=== PATIENT | female | born 1960 | race Two or more races ===

== ENCOUNTER 2017-06-16 14:25 | Emergency (ER) | payer OTHER ==
[2017-06-16 14:34] VITALS: BP 152/95; RESP 18; O2SAT 98
--- NOTE | 2017-06-16 14:58 | EDPHY ---
H & P Time Seen by Provider: 06/16/17 14:32 HPI/ROS: Chief complaint. Weakness and lightheaded HPI. 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 During the day today she developed lightheadedness and felt that she could pass out. She did not feel safe to drive. She is better with lying down. She has no fever. Has not had chest discomfort shortness of breath. She has nausea but no abdominal pain, diarrhea or vomiting. No similar symptoms previously healthy device denies past medical history. ROS Constitutional. Weakness Eyes. no problems with vision ENT. no sore throat, no nasal drainage Cardiovascular. no chest pain Respiratory. no shortness of breath, no cough Abdominal. Nausea . no problems urinating MS. no calf pain/swelling, no neck/back pain, no joint pain Skin. no rash Lymph. no swollen glands Neuro. Lightheaded and near syncope Past Medical/Surgical History: , hysterectomy, left shoulder surgery Social History: , nonsmoker, no alcohol Smoking Status: Never smoked Physical Exam: General Appearance: Alert well-developed female mild distress vital signs are stable Eyes: Pupils equal and round no pallor or injection. ENT, Mouth: Mucous membranes are moist. Respiratory: There are no retractions, lungs are clear to auscultation. Cardiovascular: Regular rate and rhythm. Gastrointestinal: Abdomen is soft and nontender, no masses, bowel sounds normal. Neurological: Awake and alert, sensory and motor exams grossly normal. Skin: Warm and dry, no rashes. Musculoskeletal: Neck is supple nontender. Extremities symmetrical, full range of motion. Psychiatric: Patient is oriented X 3, there is no agitation. Constitutional: Initial Vital Signs Temperature (C) 36.7 C 06/16/17 14:33 Heart Rate 78 06/16/17 14:33 Respiratory Rate 18 06/16/17 14:33 Blood Pressure 152/95 H 06/16/17 14:33 O2 Sat (%) 98 06/16/17 14:33 O2 Delivery Mode Room Air Allergies/Adverse Reactions: No Known Allergies Allergy (Unverified 03/22/15 16:16) Home Medications: Medication Instructions Recorded Hydrocodone/APAP 5/325 [[facility] - 2 tab PO Q4H PRN #12 tab 03/22/15 5/325] Medical Decision Making - Diagnostics EKG Interpretation: EKG interpreted by me shows normal sinus rhythm with normal interval and axis. QRS is normal there is no significant ST elevation or depression. No arrhythmia. The rate is 66. Procedures: IV normal saline with target of 2 L. Zofran for nausea ED Course/Re-evaluation: Re-evaluation 4:55 p.m.--patient is without symptoms. The patient and her and I discussed EKG and laboratory evaluation. We discussed treatment plan including criteria for return importance of follow-up and further evaluation. They expressed understanding and agreement Differential Diagnosis: I considered dehydration, heat exhaustion, acute coronary syndrome, electrolyte abnormality - Data Points Laboratory Results: Laboratory Results 06/16/17 Unknown 06/16/17 Unknown 06/16/17 06/16/17 Unknown Unknown WBC 5.18 10^3/uL 10^3/uL (3.80-9.50) RBC 4.76 10^6/uL 10^6/uL (4.18-5.33) Hgb 14.3 g/dL g/dL (12.6-16.3) Hct 42.5 % % (38.0-47.0) MCV 89.3 fL fL (81.5-99.8) MCH 30.0 pg pg (27.9-34.1) MCHC 33.6 g/dL g/dL (32.4-36.7) RDW 12.4 % % (11.5-15.2) Plt Count 259 10^3/uL 10^3/uL (150-400) MPV 9.3 fL fL (8.7-11.7) Neut % (Auto) 50.8 % % (39.3-74.2) Lymph % (Auto) 41.3 % % (15.0-45.0) Bledsoe % (Auto) 5.4 % % (4.5-13.0) Eos % (Auto) 1.9 % % (0.6-7.6) Baso % (Auto) 0.4 % % (0.3-1.7) Nucleat RBC Rel Count 0.0 % % (0.0-0.2) Absolute Neuts (auto) 2.63 10^3/uL 10^3/uL (1.70-6.50) Absolute Lymphs (auto) 2.14 10^3/uL 10^3/uL (1.00-3.00) Absolute Monos (auto) 0.28 10^3/uL L 10^3/uL (0.30-0.80) Absolute Eos (auto) 0.10 10^3/uL 10^3/uL (0.03-0.40) Absolute Basos (auto) 0.02 10^3/uL 10^3/uL (0.02-0.10) Absolute Nucleated RBC 0.00 10^3/uL 10^3/uL (0-0.01) Immature Gran % 0.2 % % (0.0-1.1) Immature Gran # 0.01 10^3/uL 10^3/uL (0.00-0.10) Sodium 143 mEq/L mEq/L (134-144) Potassium 4.0 mEq/L mEq/L (3.5-5.2) Chloride 106 mEq/L mEq/L (97-110) Carbon Dioxide 25 mEq/l mEq/l (22-31) Anion Gap 12 mEq/L mEq/L (8-16) BUN 17 mg/dL mg/dL (7-23) Creatinine 0.8 mg/dL mg/dL (0.6-1.0) Estimated GFR > 60 Glucose 129 mg/dL H mg/dL (70-100) Calcium 10.0 mg/dL mg/dL (8.5-10.4) Troponin I < 0.012 ng/mL ng/mL (0-0.034) Medications Given: Discontinued Medications Sodium Chloride (Ns) 1,000 mls @ 0 mls/hr IV EDNOW ONE; Wide Open PRN Reason: Protocol Stop: 06/16/17 15:11 Last Admin: 06/16/17 15:18 Dose: 1,000 mls Sodium Chloride (Ns) 1,000 mls @ 0 mls/hr IV EDNOW ONE; Wide Open PRN Reason: Protocol Stop: 06/16/17 15:11 Last Admin: 06/16/17 15:21 Dose: Not Given Ondansetron HCl (Zofran) 4 mg IVP EDNOW ONE Stop: 06/16/17 15:11 Last Admin: 06/16/17 15:18 Dose: 4 mg Departure - Departure Disposition: Home, Routine, Self-Care Clinical Impression: Weakness Condition: Good Instructions: Heat Exhaustion (ED) Additional Instructions: Drink plenty of fluids and stay hydrated. Return for worsening symptoms. Recheck by Dr. Banks in the next 2-3 days. Referrals: Patient,NotPresent [Unknown] - As per Instructions
[2017-06-16] MEDS ORDERED: ONDANSETRON 4 MG/2 ML VIAL IVP ONE (15:10)
[2017-06-16] MEDS ORDERED: NS 1,000 ML IV ONE ×2 (15:10)
[2017-06-16 15:21] LABS: % IMMATURE GRANULYOCYTES 0.2 % (0.0-1.1); ABSOLUTE IMMATURE GRANULOCYTES 0.01 10^3/uL (0.00-0.10); ADD DIFF? NO; ADD MORPH? NO; ADD SCAN? NO; ATYPICAL LYMPHOCYTE FLAG 20 (0-99); FRAGMENT RBC FLAG 0 (0-99); HEMATOCRIT 42.5 % (38.0-47.0); HEMOGLOBIN 14.3 g/dL (12.6-16.3); LEFT SHIFT FLG 0 (0-99); LIPEMIA HEMOLYSIS FLAG 80 (0-99); MEAN CELL HEMOGLOBIN CONCENTR. 33.6 g/dL (32.4-36.7); MEAN CELL VOLUME 89.3 fL (81.5-99.8); MEAN PLATELET VOLUME 9.3 fL (8.7-11.7); PLATELET CLUMPS FLAG 0 (0-99); PLATELET COUNT 259 10^3/uL (150-400); RED BLOOD CELL COUNT 4.76 10^6/uL (4.18-5.33); RED CELL DISTRIBUTION WIDTH 12.4 % (11.5-15.2)
[2017-06-16 15:26] LABS: ANION GAP 12 mEq/L (8-16); CARBON DIOXIDE 25 mEq/l (22-31); CHLORIDE 106 mEq/L (97-110); CREATININE 0.8 mg/dL (0.6-1.0); GLOMERULAR FILTRATION RATE > 60; GLUCOSE 129 mg/dL (70-100); SODIUM 143 mEq/L (134-144)
--- NOTE | 2017-06-16 15:27 | CPEKG ---
Heart Rate: 66 RR Interval: 909 P-R Interval: 120 QRSD Interval: 88 QT Interval: 436 QTC Interval: 457 P Carver: 12 QRS Carver: 55 T Wave Carver: 22 EKG Severity - NORMAL ECG - EKG Impression: SINUS RHYTHM Electronically Signed By: Papito Dinero 16-Jun-2017 17:14:29
[2017-06-16 15:37] LABS: TROPONIN I < 0.012 ng/mL (0-0.034)
[2017-06-16 16:09] VITALS: PULSE 85
[2017-06-16 17:08] VITALS: TEMP 98.2
== END 2017-06-16 17:09 | disposition home or self-care (01) ==
LOC: EDUNIT#
DX: R53.1 Weakness (principal); E86.9 Volume depletion, unspecified
CPT/HCPCS: 96374; J2405